=== PATIENT | male | born 1960 | race Caucasian/White ===

== ENCOUNTER 2019-12-20 17:29 | Emergency (ER) | payer OTHER ==
[~2019-12-20] VITALS: Ht 188 cm; Wt 131.0 kg
[2019-12-20 17:42] VITALS: BP 179/105
[2019-12-20] MEDS ORDERED: silver sulfADIAZINE 1% CREAM 50GM JAR. TP ONE (17:45)
[2019-12-20] MEDS ORDERED: oxyCODONE/APAP 5/325 1 TAB TABLET PO ONE (17:45)
[2019-12-20] MEDS ORDERED: ERYTHROMYCIN 0.5% OPHTH OINTMENT 1GM TUBE. OS ONE (17:45)
[2019-12-20] MEDS ORDERED: ERYT1OIN6 OP (17:51)
[2019-12-20] MEDS ORDERED: SILV20CR14 TP (17:51)
[2019-12-20] MEDS ORDERED: OXYC-325 PO (17:51)
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
== END 2019-12-20 18:19 | disposition home or self-care (01) ==
LOC: ER 17:29
DX: T20.14XA Burn of first degree of nose (septum), initial encounter (principal); T26.42XA Burn of left eye and adnexa, part unspecified, initial encounter; X08.8XXA Exposure to other specified smoke, fire and flames, initial encounter; Y93.89 Activity, other specified; Y92.89 Other specified places as the place of occurrence of the external cause; Y99.8 Other external cause status
CPT/HCPCS: 99284